=== PATIENT | male | born 1985 | race Caucasian/White ===

== ENCOUNTER 2022-08-31 14:00 | Emergency (ER) | payer BC, OTHER ==
[2022-08-31 14:26] VITALS: BP 138/54; PULSE 71; RESP 20; TEMP 98.8; BMI 29.4
== END 2022-08-31 16:00 | disposition home or self-care (01) ==
LOC: JERFT 14:00 → JER 14:00 → JERFT 16:00
PROC: 0HQ1XZZ Repair Face Skin, External Approach (ICD-10-PCS; principal; 2022-08-31)
DX: S01.111A Laceration without foreign body of right eyelid and periocular area, initial encounter (principal); S00.83XA Contusion of other part of head, initial encounter; W22.8XXA Striking against or struck by other objects, initial encounter
CPT/HCPCS: 99282-25